=== PATIENT | male | born 1970 | race Caucasian/White ===

== ENCOUNTER 2024-07-18 09:53 | Inpatient (IN) | payer OTHER ==
[~2024-07-18] VITALS: Ht 175.3 cm; Wt 87.2 kg
--- NOTE | 2024-07-18 10:24 | ERN ---
General Chief Complaint: Shortness of Breath Stated Complaint: SOB Time Seen by MD: 09:59 Time Seen by Midlevel: 09:59 Source: patient History of Present Illness Initial Comments Patient is a 53-year-old male with a past medical history of type 2 diabetes and hypertension being brought in via EMS for evaluation of shortness of breath. According to patient he has been short of breath for the last two days. He saw his primary care doctor tip day where he was found to have heart rate in the 180s. He was found to have SVT. He was given one dose of adenosine by EMS which converted his rhythm to sinus tachycardia in the 110s. On arrival patient reports feeling significantly improved. He specifically denies any chest pain, shortness breath, or any other symptoms at this time. Patient states he feels like he is back to normal Allergies: Coded Allergies: No Known Drug Allergies (Unverified Allergy, Unknown, 07/18/24) ROS Dictation CONSTITUTIONAL: Negative except for HPI HEAD/FACE: Negative except for HPI EENT: Negative except for HPI RESPIRATORY: Negative except for HPI GASTROINTESTINAL/ABDOMINAL: Negative except for HPI GENITOURINARY: Negative except for HPI MUSCULOSKELETAL: Negative except for HPI INTEGUMENTARY: Negative except for HPI NEUROLOGICAL/PSYCH: Negative except for HPI HEMATOLOGIC/LYMPHATIC: Negative except for HPI All Systems Negative, Except as noted above. 13 point review of systems assessed and all negative except for above. Physical Exam Physical Exam Dictation Vital Signs reviewed General Appearance: Alert, oriented x 3, no acute distress, well developed, nourished. Head and Face: non-traumatic. Eyes: PERRL, pink conjunctivas, eyelid no trauma, anterior chamber with arcus senilis. Ears: Pinnas intact and no signs of trauma or erythema ear canals clear and no discharge TM no erythema Nose: No discharge, no bleeding. Oropharynx: Mouth normal, tongue pink, pharynx clear,no erythema, tonsils no exudates, no abscesses noted, mucous membrane moist Neck: Supple, non-tender, no thyromegaly, no masses, no JVD, no bruits Breast:Deferred Chest:No tenderness, no crepitus, no paradoxical movement, no retractions Lungs:Clear, well-ventilated, symmetric, no rales, no wheezing, no rhonchi, no stridor, good breath sounds bilaterally Heart: Regular rate, regular rhythm, no murmur, no gallops Vascular: no peripheral edema, Abdomen: Soft, positive bowel sounds, nondistended, no guarding, nontender, no rebound, no masses no hepatomegaly, no splenomegaly, no Nye's sign, no hernias. Rectal: Deferred Genital: Deferred Neurological: Normal speech, motor function intact, sensory function intact Musculoskeletal: Neck nontender, full range of motion, back nontender, full range of motion, Extremities: nontender, full range of motion Skin: Color pink, dry, no turgor, no rash, no lacerations, no abrasions, no contusions. Lymphatic: Deferred Results Laboratory and Microbiology Lab and Micro Result Laboratory Tests Test 07/18/24 10:21 07/18/24 11:15 07/18/24 12:16 07/18/24 13:37 White Blood Count 13.8 K/uL (4.8-10.8) H Red Blood Count 4.91 MIL/uL (4.50-6.20) Hemoglobin 14.3 g/dL (14.0-18.0) Hematocrit 43.8 % (42-54) Mean Corpuscular Volume 89.2 fL (79-99) Mean Corpuscular Hemoglobin 29.1 pg (27.0-33.0) Mean Corpuscular Hemoglobin Concent 32.6 g/dL (32.0-36.0) Red Cell Distribution Width 13.3 % (11.0-15.5) Platelet Count 133 K/uL (130-400) Mean Platelet Volume 14.1 fL (7.5-10.5) H Immature Granulocyte % (Auto) 0.7 % (0-1) Neutrophils (%) (Auto) 85.0 % (40.0-77.0) H Lymphocytes (%) (Auto) 7.7 % (21.0-51.0) L Monocytes (%) (Auto) 6.1 % (3.0-13.0) Eosinophils (%) (Auto) 0.1 % (0.0-8.0) Basophils (%) (Auto) 0.4 % (0.0-5.0) Neutrophils # (Auto) 11.8 K/uL (1.8-7.7) H Lymphocytes # (Auto) 1.1 K/uL (1.0-4.8) Monocytes # (Auto) 0.8 K/uL (0.1-1.0) Eosinophils # (Auto) 0.01 K/uL (0.00-0.70) Basophils # (Auto) 0.05 K/uL (0.00-0.20) Absolute Immature Granulocyte (auto 0.09 K/uL (0-1) Nucleated Red Blood Cells 0.0 % (0.0-0.19) White Cell Morphology Comment See comments Prothrombin Time 11.5 SEC (9.6-11.6) Prothromb Time International Ratio 1.03 (0.85-1.15) Activated Partial Thromboplast Time 24.1 SEC (26.3-35.5) L Sodium Level 137 mmol/L (136-145) Potassium Level 5.4 mmol/L (3.5-5.1) H Chloride Level 100 mmol/L (101-111) L Carbon Dioxide Level 27 mmol/L (21-32) Blood Urea Nitrogen 25 mg/dL (7-18) H Creatinine 2.0 mg/dL (0.5-1.3) H Glomerular Filtration Rate Calc 40 mL/min (>90) Random Glucose 392 mg/dL (70-105) H Total Calcium 9.1 mg/dL (8.5-10.1) Magnesium Level 1.90 mg/dL (1.80-2.40) Total Creatine Kinase 228 U/L (21-232) Troponin I High Sensitivity 347 ng/L (4-75) *H 379 ng/L (4-75) *H B-Type Natriuretic Peptide 746 pg/mL (0-100) H Whole Blood Glucose 301 MG/DL (70-110) H Urine Color YELLOW (YELLOW) Urine Appearance CLEAR (CLEAR) Urine pH 5.5 (5.0-8.0) Urine Specific [place] 1.038 (1.001-1.031) Urine Protein 50 mg/dL (NEGATIVE) H Urine Glucose (UA) >=1000 mg/dL (NEGATIVE) H Urine Ketones 10 mg/dL (NEGATIVE) H Urine Occult Blood NEGATIVE (NEGATIVE) Urine Nitrate NEGATIVE (NEGATIVE) Urine Bilirubin NEGATIVE mg/dL (NEGATIVE) Urine Urobilinogen 0.2 mg/dL (0.2-1.0) Urine Leukocyte Esterase NEGATIVE Corina/uL Urine RBC 0-1 /HPF (0-1) Urine WBC 2-5 /HPF (0-1) H Urine Squamous Epithelial Cells RARE /HPF (0-2) Urine Bacteria None /HPF (None Seen) Urine Other Casts 5 /LPF (None Seen) Urine Opiates Screen NEGATIVE (NEGATIVE) Urine Barbiturates Screen NEGATIVE (NEGATIVE) Urine Phencyclidine Screen NEGATIVE (NEGATIVE) Urine Amphetamines Screen NEGATIVE (NEGATIVE) Urine Benzodiazepines Screen NEGATIVE (NEGATIVE) Urine Cocaine Screen NEGATIVE (NEGATIVE) Urine Marijuana (THC) Screen NEGATIVE (NEGATIVE) Labs Reviewed?: Yes MDM MDM: Differential diagnosis: Cardiac arrhythmia, ACS, electrolyte abnormality, dehydration Rationale: Tests considered and ordered secondary to shared decision making include: Previous outside records reviewed: Old ER visits. Risk of complication and/or morbidity or mortality of patient management: None Medications-Per medication reconciliation Need for hospitalization: Patient does meet criteria for hospitalization. Need for emergency major/minor surgery: No There are no social concerns with this patient. Prescription drug management Prescriptions will include symptomatic care Patient's prior external medical records from other ER visits were reviewed by me as indicated. Prior testing and results from previous visits were reviewed. Prior tests were taken into account with medical decision making and resource utilization, independent historian/historians were used to obtain complete medical history. I independently interpreted the test that were performed, results were reviewed by me and considered findings on radiology if ordered. Medical management and examination interpretation discussions were had by me with other qualified healthcare professionals as indicated for the patient's care. ED Course Orders Procedure Category Date Status Time 12 Lead Ekg Tracing- EKG 07/18/24 Complete Technical 10:12 B-Type Natriuretic LAB 07/18/24 Complete Peptide 10:12 Cbc With Differential LAB 07/18/24 Complete 10:12 Creatine Kinase, Total LAB 07/18/24 Complete 10:12 Basic Metabolic Panel LAB 07/18/24 Complete 10:12 Drug Screen Urine LAB 07/18/24 Complete 10:12 Urinalysis Profile LAB 07/18/24 Complete 10:12 Troponin I High LAB 07/18/24 Complete Sensitivity 10:12 Pt And Ptt LAB 07/18/24 Complete 10:12 Magnesium LAB 07/18/24 Complete 10:12 Chest 1vw RAD 07/18/24 Resulted 10:12 0.9%Nacl 1000ml (Ns PHA 07/18/24 Complete 1000ml) 11:00 Calcium Gluc 1gm PHA 07/18/24 Complete (Calcium Gluc 1gm 11:00 Insulin Regular, PHA 07/18/24 Complete Human 3ml (Humulin R 11:00 Troponin I High LAB 07/18/24 Complete Sensitivity 11:12 Current Medications Medications (Trade) Dose Ordered Sig/Tiana Route PRN Reason Start Time Stop Time Status Last Admin Dose Admin Calcium Gluconate 1 gm/Sodium Chloride 110 ml @ 110 mls/hr ONCE ONCE IV 07/18/24 11:00 07/18/24 11:59 DC 07/18/24 11:32 Insulin Human Regular (humuLIN R 100 UNIT/ML 3ML) 5 unit ONCE ONCE IV 07/18/24 11:00 07/18/24 11:05 DC 07/18/24 11:32 Sodium Chloride 1,000 ml @ 0 mls/hr ONCE ONCE IV 07/18/24 11:00 07/18/24 11:05 DC 07/18/24 11:33 Vital Signs Date Time Temp Pulse Resp B/P (MAP) Pulse Ox O2 Delivery O2 Flow Rate FiO2 07/18/24 13:30 99 20 145/103 98 Room Air* 0 21 07/18/24 10:22 98.2 104 16 153/105 100 Room Air 0 07/18/24 10:10 98.2 104 17 153/105 100 Room Air* [address] [address] IMAGING REPORT Signed PATIENT: CHANDLER LAMAS MR#: [id number] : 1970 SEX: M AGE: 53 LOCATION: ED ORDER 1013 STATUS: REG ER REPORT#: [id number] SERVICE 1012 REASON: sob ORDERING PHYSICIAN: KRISTIN HAYNES PROCEDURE: CXR1VW - CHEST 1VW CHEST 1VW HISTORY: Shortness of breath COMPARISON: None FINDINGS: A frontal projection of the chest was obtained. No acute pulmonary infiltrates is seen. The heart is borderline enlarged. Degenerative changes are seen. Prominent interstitial markings are seen. No evidence of aortic calcification is seen. IMPRESSION: 1. No acute pulmonary infiltrate is seen. DICTATED BY: GORGE HAHN MD DATE: 07/18/24 1036 ELECTRONICALLY SIGNED BY: GORGE HAHN MD DATE: 07/18/24 1042 DX & DISP Disposition: Inpatient Decision to Admit Date: Jul 18, 2024 Departure Impression: Primary Impression: SVT (supraventricular tachycardia) Additional Impressions: Elevated troponin, FERNANDA (acute kidney injury), Hyperkalemia, Elevated brain natriuretic peptide (BNP) level Condition: Stable Referrals: SHAISTA KLINE MD (PCP) I have reviewed the case, and I agree with, Diagnosis and Plan I performed the substantive portion of the visit. I have reviewed and personally made and approve the management plan that is documented in the note by myself or the JOSUE. I acknowledge for responsibility for the patient's management plan. KRISTIN HAYNES Jul 18, 2024 10:24
[2024-07-18 10:28] LABS: BASOPHILS # (AUTO) 0.05 K/uL (0.00-0.20); BASOPHILS % (AUTO) 0.4 % (0.0-5.0); EOSINOPHILS # (AUTO) 0.01 K/uL (0.00-0.70); EOSINOPHILS % (AUTO) 0.1 % (0.0-8.0); HEMATOCRIT 43.8 % (42-54); IMMATURE GRANULOCYTE ABSOLUTE 0.09 K/uL (0-1); LYMPHOCYTES # (AUTO) 1.1 K/uL (1.0-4.8); LYMPHOCYTES % (AUTO) 7.7 % (21.0-51.0); MEAN CORPUSCULAR HEMOGLOBIN 29.1 pg (27.0-33.0); MEAN CORPUSCULAR HGB CONC 32.6 g/dL (32.0-36.0); MEAN CORPUSCULAR VOLUME 89.2 fL (79-99); MONOCYTES # (AUTO) 0.8 K/uL (0.1-1.0); MONOCYTES % (AUTO) 6.1 % (3.0-13.0); NEUTROPHILS # (AUTO) 11.8 K/uL (1.8-7.7); PLATELET COUNT (AUTO) 133 K/uL (130-400); RED BLOOD CELL COUNT(AUTO) 4.91 MIL/uL (4.50-6.20); RED CELL DISTRIBUTION WIDTH 13.3 % (11.0-15.5); WHITE BLOOD COUNT (AUTO) 13.8 K/uL (4.8-10.8)
[2024-07-18 10:35] LABS: POTASSIUM 5.4 mmol/L (3.5-5.1)
[2024-07-18 10:40] LABS: MAGNESIUM 1.9 mg/dL (1.80-2.40)
--- NOTE | 2024-07-18 10:42 | HMCIMG ---
CHEST 1VW HISTORY: Shortness of breath COMPARISON: None FINDINGS: A frontal projection of the chest was obtained. No acute pulmonary infiltrates is seen. The heart is borderline enlarged. Degenerative changes are seen. Prominent interstitial markings are seen. No evidence of aortic calcification is seen. IMPRESSION: 1. No acute pulmonary infiltrate is seen.
--- NOTE | 2024-07-18 10:51 | EKG ---
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
[2024-07-18 10:52] LABS: INR 1.03 (0.85-1.15); PROTHROMBIN TIME 11.5 SEC (9.6-11.6)
[2024-07-18 10:54] LABS: PARTIAL THROMBOPLASTIN TIME 24.1 SEC (26.3-35.5)
[2024-07-18 11:09] LABS: B-TYPE NATRIURETIC PEPTIDE 746 pg/mL (0-100)
[2024-07-18] MEDS: CALCIUM GLUC 1GM 1 GM in 0.9%NACL 100ML 100 ML IV ONE (11:32)
[2024-07-18] MEDS: INSULIN humuLIN R 100 UNIT/ML 3ML IV ONE (11:32)
[2024-07-18] MEDS: 0.9%NACL 1000ML 1,000 ML IV ONE (11:33)
[2024-07-18 14:06] LABS: AMPHET/METH SCREEN,URINE NEGATIVE (NEGATIVE); BARBITURATE SCREEN, URINE NEGATIVE (NEGATIVE); BENZODIAZEPINES SCREEN,URINE NEGATIVE (NEGATIVE); CANNABINOID SCREEN,URINE NEGATIVE (NEGATIVE); COCAINE SCREEN,URINE NEGATIVE (NEGATIVE); OPIATE SCREEN,URINE NEGATIVE (NEGATIVE); PHENCYCLIDINE SCREEN,URINE NEGATIVE (NEGATIVE)
[2024-07-18 14:23] LABS: APPEARANCE,URINE CLEAR (CLEAR); BILIRUBIN,URINE NEGATIVE (NEGATIVE); COLOR,URINE YELLOW (YELLOW); GLUCOSE, URINE (UA) >=1000 mg/dL (NEGATIVE); KETONES,URINE 10 mg/dL (NEGATIVE); LEUKOCYTE ESTERASE ,URINE NEGATIVE Leu/uL (NEGATIVE); NITRATE,URINE NEGATIVE (NEGATIVE); OCCULT BLOOD,URINE NEGATIVE (NEGATIVE); PH,URINE 5.5 (5.0-8.0); PROTEIN,URINE 50 mg/dL (NEGATIVE); UROBILINOGEN,URINE 0.2 mg/dL (0.2-1.0)
[2024-07-18 14:42] LABS: ADD UA MICROSCOPIC YES
[2024-07-18 14:44] LABS: MUCUS,URINE RARE LPF (None Seen); OTHER CASTS, URINE 5 /LPF (None Seen); RBC,URINE 0-1 /HPF (0-1); SQUAMOUS EPITHELIAL CELL,UR RARE /HPF (0-2)
[2024-07-18] MEDS ORDERED: acetaMINOPHEN 325 MG TAB PO PRN (15:00)
[2024-07-18] MEDS ORDERED: ondanSETRON 4MG INJ IVP PRN (15:00)
--- NOTE | 2024-07-18 15:26 | NUR ---
SPOKE TO DR. HUBER BUTLER IN REGARDS TO CARDILOGY CONSULT FOR PT.
--- NOTE | 2024-07-18 15:49 | NUR ---
Cardiology Practicioner with pt at bedside.
--- NOTE | 2024-07-18 16:03 | HP ---
DATE OF SERVICE: 07/18/2024 HISTORY AND PHYSICAL PRESENTING COMPLAINT: Palpitation and abnormal EKG. HISTORY OF PRESENT ILLNESS: This is a 53-year-old male with history of obesity and diabetes mellitus, currently not on any medications, who presented to the emergency room with above complaint. The patient had gone to see his primary care physician today, where he was found to have SVT and was subsequently transferred to the hospital. The patient was given 1 dose of adenosine by EMS and converted to sinus rhythm. The patient claims he has been having palpitations for about 3-4 days, which he did not pay close attention. The patient also has been having progressive shortness of breath for 4 weeks. No orthopnea, no PND. Denies any leg swelling. No cough, no hemoptysis or pleuritic pain. EKG in the emergency room was sinus tachycardia. The patient was found to have elevated heart rate of 92. Initial troponin was 347, later on increased to 379. The patient claims he has a history of diabetes, but stopped taking Ozempic a few months ago. No dysuria or urinary frequency. The patient also has nausea and vomiting. No abdominal pain. PAST MEDICAL HISTORY: 1. Diabetes mellitus. 2. Obesity. PAST SURGICAL HISTORY: Appendectomy. ALLERGIES: No known drug allergy. HOME MEDICATIONS: Include Ozempic. SOCIAL HISTORY: Lives with . No alcohol, tobacco, or illicit drug use. FAMILY HISTORY: Positive for diabetes mellitus. REVIEW OF SYSTEMS: Greater than 10 systems were reviewed, negatives are documented above. PHYSICAL EXAMINATION: GENERAL: Young male, awake. VITAL SIGNS: Temperature 98.2, pulse 104, respirations 16, BP 153/105. EYES: No icterus. Pupils equal and reactive. HENT: No oral thrush seen. Moist oral mucosa. NECK: Supple, no JVD or thyromegaly. LUNGS: Good air entry. No rales, no rhonchi. CARDIOVASCULAR SYSTEM: S1, S2 regular, tachycardic. No murmur heard. ABDOMEN: Obese, soft, nontender. Bowel sounds present. CENTRAL NERVOUS SYSTEM: Awake, alert, oriented x 3. No focal deficits. SKIN: No rashes, no itchiness. LYMPHATIC: No peripheral lymphadenopathy. BACK: No deformity, no pressure ulcer. HEMATOLOGIC: No bleeding or petechial lesions seen. MUSCULOSKELETAL: No joint swelling, erythema, or tenderness. VASCULAR: No ischemia or gangrene of extremities. LABORATORY DATA: Sodium 137, potassium 5.4, BUN 25, creatinine 2.0. Troponin 379. Glucose 392. WBC 13.8, hemoglobin 14.3, platelets 133. Urine toxicology negative. RADIOLOGY: Chest x-ray unremarkable. ASSESSMENT: A 53-year-old male presenting with palpitations and abnormal EKG. CURRENT PROBLEMS: Include: 1. SVT. 2. Nonketotic hyperglycemia. 3. Acute renal failure. 4. Hyperkalemia. 5. Hypertension. 6. Obesity. PLAN: 1. The patient admitted to PCCU. 2. Troponin will be trended. 3. Aspirin will be started. 4. The patient will be placed on Lovenox. 5. Cardiology evaluation. 6. Start the patient on Lopressor. 7. Monitor electrolytes. 8. Home medication will be reconciled. 9. Obtain lipid profile. 10. Obtain hemoglobin A1c level. TID: [id number] RECEIPT: [id number] [facility] CENTERParmjit
[2024-07-18] MEDS: INSULIN LISpro 100 UNIT/ML 3ML SQ SCH (16:34)
[2024-07-18] MEDS: metoPROLOL tartRATE 25 MG TAB PO SCH (20:59)
--- NOTE | 2024-07-18 21:10 | CONS ---
CARDIOLOGY CONSULT Patient is a 53-year-old male with a past medical history of type 2 diabetes and hypertension being brought in via EMS for evaluation of shortness of breath. According to patient he has been short of breath for the last two days. He saw his primary care doctor tip day where he was found to have heart rate in the 180s. He was found to have SVT. He was given one dose of adenosine by EMS which converted his rhythm to sinus tachycardia in the 110s. On arrival patient reports feeling significantly improved. He specifically denies any chest pain, shortness breath, or any other symptoms at this time. Patient states he feels like he is back to normal we have been consult in view of SVT, and elevated trop of 379 pmhx as mentioned above social history no tobacco use surgical history noncontributory Vitals/Labs PE HEENT: Normacephalic,atraumatic.puplis equal and reactive to light.No pallor/jaundice/jvd/carotid bruit. LUNGS:CTA bilaterally CVS:All peripheral pulses felt and bilaterally decreased in bth feetheent No jvd /carotid bruit/femoral bruit /abdominal bruit.s1 s2 heard and irregularly irregular hr .no murmur's or any other adventitiuos sounds. ABD:Soft and nontender .No hepatomegaly. PHYSICAL THERAPY PROFESSOR:No focal weakness. EXT: no edema Vital Signs Date Time Temp Pulse Resp B/P (MAP) Pulse Ox O2 Delivery O2 Flow Rate FiO2 07/18/24 16:45 101 19 146/100 98 Room Air* 0 21 07/18/24 10:22 98.2 Laboratory Tests 07/18/24 10:21 Allergies: Coded Allergies: No Known Drug Allergies (Unverified Allergy, Unknown, 07/18/24) Medications Current Medications Sodium Chloride 1,000 ml @ 0 mls/hr ONCE ONCE IV Last administered on 07/18/24at 11:33; Start 07/18/24 at 11:00; Stop 07/18/24 at 11:05; Status DC Calcium Gluconate 1 gm/Sodium Chloride 110 ml @ 110 mls/hr ONCE ONCE IV Last administered on 07/18/24at 11:32; Start 07/18/24 at 11:00; Stop 07/18/24 at 11:59; Status DC Insulin Human Regular 5 unit ONCE ONCE IV Last administered on 07/18/24at 11:32; Start 12/17/24 at 11:00; Stop 07/18/24 at 11:05; Status DC Acetaminophen 650 mg Q6H PRN PO; Start 07/18/24 at 15:00; Stop 08/17/24 at 14:59 Ondansetron HCl 4 mg Q6H PRN IVP; Start 07/18/24 at 15:00; Stop 08/17/24 at 14:59 Enoxaparin Sodium 40 mg DAILY SQ; Start 07/19/24 at 09:00; Stop 08/18/24 at 08:59 Metoprolol Tartrate 25 mg BID PO; Start 07/18/24 at 21:00; Stop 08/17/24 at 20:59 Insulin Human Lispro INSULIN SLIDING SCAL... ACHS SQ Last administered on 07/18/24at 16:34; Start 07/18/24 at 16:30; Stop 08/17/24 at 16:29 ASSESSMENT: 1. SVT resolved with adenosine 2. type 2 mi 3. htn, hld, dm ii PLAN: From a cardiovascular standpoint we will do one more troponin if there isnt a significant increase of troponin I pt can go home and we will plan for out pt cadx workup further recommendation will be based on how pt does IVANNA TIM PAC Jul 18, 2024 21:10
[2024-07-18] MEDS: ALPRAZolam 0.5 MG TABLET PO ONE (21:14)
--- NOTE | 2024-07-18 21:42 | NUR ---
dr degroot notified regarding critical troponin; per dr degroot continue with asa and lovenox; no new orders given
[2024-07-19 05:02] LABS: BASOPHILS # (AUTO) 0.07 K/uL (0.00-0.20); BASOPHILS % (AUTO) 0.5 % (0.0-5.0); EOSINOPHILS # (AUTO) 0.06 K/uL (0.00-0.70); EOSINOPHILS % (AUTO) 0.4 % (0.0-8.0); HEMATOCRIT 45.7 % (42-54); IMMATURE GRANULOCYTE ABSOLUTE 0.06 K/uL (0-1); LYMPHOCYTES # (AUTO) 1.6 K/uL (1.0-4.8); LYMPHOCYTES % (AUTO) 11.7 % (21.0-51.0); MEAN CORPUSCULAR HEMOGLOBIN 29.5 pg (27.0-33.0); MEAN CORPUSCULAR HGB CONC 32.8 g/dL (32.0-36.0); MEAN CORPUSCULAR VOLUME 89.8 fL (79-99); MONOCYTES # (AUTO) 0.8 K/uL (0.1-1.0); MONOCYTES % (AUTO) 5.9 % (3.0-13.0); NEUTROPHILS # (AUTO) 11.1 K/uL (1.8-7.7); NEUTROPHILS % (AUTO) 81.1 % (40.0-77.0); PLATELET COUNT (AUTO) 131 K/uL (130-400); RED BLOOD CELL COUNT(AUTO) 5.09 MIL/uL (4.50-6.20); RED CELL DISTRIBUTION WIDTH 13.3 % (11.0-15.5); WHITE BLOOD COUNT (AUTO) 13.7 K/uL (4.8-10.8)
[2024-07-19 05:25] LABS: CREATININE 1.6 mg/dL (0.5-1.3); POTASSIUM 4.7 mmol/L (3.5-5.1)
[2024-07-19 05:28] LABS: HEMOGLOBIN A1C 10.4 % (4.0-6.0)
[2024-07-19 05:40] LABS: MAGNESIUM 1.9 mg/dL (1.80-2.40)
--- NOTE | 2024-07-19 06:48 | NUR ---
INFORMED DR PURVIS OF TROPONIN [address] CK 877. PER HE WILL STOP BY TO SEE THE PATIENT. Addendum: 07/19/24 at 0651 by LATRICIA ONEILL RN RN PLEASE DISREGARD ERROR
[2024-07-19] MEDS: ENOXAPARIN SODIUM 40 MG/0.4 ML SYRINGE SQ SCH (08:48)
--- NOTE | 2024-07-19 09:00 | NUR ---
PATIENT TAKEN FOR STRESS TEST
[2024-07-19] MEDS: REGADENOSON 0.4 MG/5 ML PF SYG IVP SCH (10:20)
--- NOTE | 2024-07-19 10:24 | NUR ---
PATIENT RETURNED FROM STRESS TEST.
--- NOTE | 2024-07-19 11:16 | NUR ---
PATIENT DOES NOT TAKE [facility] HOME MEDICATIONS. PATIENT WOULD LIKE A FLU SHOT.
--- NOTE | 2024-07-19 15:00 | NUR ---
DCP: HOME Sw spoke to pt's Ro Alvarez [phone]. 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 PCP is Orlando Stevens nd uses [facility] for rx. Per , pt will dc home
--- NOTE | 2024-07-19 15:06 | HMCSR ---
APPROVED REPORT EXAM: Two-dimensional and M-mode echocardiogram with Doppler and color Doppler. INDICATION ICD: Superventricular tachycardia 2D Dimensions RVDd4.4 cmLVEF(%)26.5 (>50%)LVED Vol(simp.)147.0 mL IVSd0.7 (0.7-1.1cm)FS(%)13 %LVES Vol(simp.)97.3 mL LVDd5.5 (3.8-5.6cm)LA (2D)4.5 (1.6-4.0cm)LVEF(%, simp.)34 % PWd1.1 (0.7-1.1cm)Ao Root(2D)3.6 (2.0-3.7cm)LA ESV INDEX (4CH)31.30 mL/m2 IVSs0.8 cmLVOT diam2.0 (1.8-2.4cm)LA ESV INDEX (2CH)46.10 mL/m2 LVDs4.8 (2.5-4.0cm)LA ESV INDEX (BP)37.90 mL/m2 PWs1.3 cm M-Mode Dimensions EPSS1.7 cm LA (MM)5.2 (1.6-4.0cm) Ao Root(MM)3.3 (2.0-3.7cm) Aortic Valve AoV VTI0.2 mAo Mean GR4.0 mmHgLVOT VTI0.12 m AMIRA (VMAX)1.7 cm2Al P1/2T422 msAVA (VTI) 1.7 cm2 Mitral Valve MV E Phhz492.2 cm/sDECEL Time99 ms MV A Vmax55.8 cm/sP 1/2 T44 ms E/A ratio1.9MVA (PHT)5.0 cm2 MR Max PG121 mmHg TDI E/E' Nzrwhv13.7E/E' Mssnufn64.0 Medial E' Peak V6.10 cm/sLateral E' Peak V5.70 cm/s Pulmonary Valve PI End Keri. Kin 115.4 cm/s Tricuspid Valve TR Vmax3.1 m/sRAP (EST) 15 kzHsQTRL90.0 mmHg TR Peak GR38.0 mmHg Left Ventricle The left ventricle is normal size. There is global hypokinesis of the left ventricle. There is normal left ventricular wall thickness. LVEF is 30-35%. The left ventricular diastolic function is normal. Right Ventricle The right ventricle is mildly to moderately dilated. The right ventricular systolic function is terell l. Atria The left atrium is mildly dilated. The right atrium is moderately dilated. Aortic Valve Aortic valve is trileaflet and opens well. No aortic regurgitation is present. There is no aortic veronika vular stenosis. Mitral Valve The mitral valve is normal in structure. There is trace of mitral valve regurgitation noted. There is no mitral valve stenosis. Tricuspid Valve The tricuspid valve is normal in structure. There is mild tricuspid valve regurgitation noted. Pulmonic Valve The pulmonary valve is normal in structure. There is mild pulmonic valvular regurgitation. Great Vessels The aortic root is normal in size. IVC is dilated and collapses <50% with inspiration. Pericardium There is no pericardial effusion. Other Information Quality : Adequate Conclusion LVEF is 30-35%. There is trace of mitral valve regurgitation noted.
--- NOTE | 2024-07-19 16:57 | HMCSR ---
APPROVED REPORT Height: 5 ft 9in Weight: 225 lbs TEST INDICATIONS SVT The imaging protocol used to acquire images was Rest Tc-99m/stress Tc-99m 1 day Consent: The procedure was explained and understood by the patient. Informerd consent was witnessed Alexandro Hartman RN First, low dose rest was performed then high dose stress. RESTING DATA: The resting ekg shows: NSR Rest SPECT myocardial perfusion imaging was performed in supine position minutes following the intra venous injection of 13.5 mCi of Tc-99 Sestamibi. Time of rest injection: 09:00: Date: 07/19/2024 PHARMACOLOGIC STRESS: Pharmacologic stress test was performed by injecting regadenoson 0.4 mg IV push followed by the intra venous injection of 30 mCi of Tc-99 Sestamibi. Time of stress injection: 10:10: Date: 07/19/2024 Heart Rate at time of stress injection: 78 bpm. The images were gated to evaluate regional wall motion and calculate left ventricular ejection fracti on. STRESS DETAILS Reason for Termination: Infusion complete Stress Symptoms: Dyspnea Max HR Achieved: 83 bpm % of APMHR Achieved: 58 Max Blood Pressure: 131/94 mmHg Stress ECG: NSR Conclusion No ischemia No infarct LV ejection fraction 33% Diffuse mild LV hypokinesis Dilate LV at rest and stress No increased lung uptake
[2024-07-19] MEDS: LoSARTan 25 MG TABLET PO ONE (18:57)
[2024-07-19] MEDS: furoSEMIDE 20MG VIAL IV SCH (19:31)
[2024-07-19] MEDS: ALPRAZolam 0.5 MG TABLET PO PRN (20:56)
--- NOTE | 2024-07-19 23:15 | PN ---
SUBJECTIVE: The patient has some shortness of breath, episodic. OBJECTIVE: VITAL SIGNS: Heart rate is 70, blood pressure is 150/110. HEENT: No JVD. LUNGS: Mostly clear. CARDIOVASCULAR: No S3, no S4. ABDOMEN: Benign. CENTRAL NERVOUS SYSTEM: Nonfocal exam. EXTREMITIES: No pitting edema. LABORATORY FINDINGS: Labs have all been reviewed. Echocardiogram shows severe LV dysfunction. Stress test showed ejection fraction of 30-35%. There is no discrete ischemia seen. 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 * Supraventricular tachycardia. * Shortness of breath, likely secondary to mild congestive heart failure. RECOMMENDATIONS: * I will start him on diuretics. * I have given the option of doing a cardiac catheterization on him. Procedure, benefits, risks have all been explained to him. He understands and wishes to proceed. We will proceed with a cardiac catheterization tomorrow. In the meantime, I will start him on NAEL inhibitors and low dose diuretics. TID: [id number] RECEIPT: [id number]
[2024-07-20] VITALS (17 sets, daily range): BP systolic 126–157; BP diastolic 86–107; PULSE 82–98; RESP 16–20; TEMP 97.5–98.3; O2SAT 97
--- NOTE | 2024-07-20 01:40 | NUR ---
CALL TO DR HUBER BUTLER. PENDING CALL BACK
--- NOTE | 2024-07-20 01:43 | NUR ---
PATIENT ARRIVED TO ROOM 204. PATIENT AAOX4, ASYMPTOMATIC. TELE MONITOR CALLED STATING SOON TELE MONITOR WAS PUT ON, RHYTHM SHOWS SVT HR 190. TELEPHONE CALL WITH DR HUDSON. NEW ORDERS: ADENOSINE 6MG IV PUSH STAT. IF THAT DOESN'T WORK, ADMINISTER ADENOSINE 12 MG IV PUSH. MONITOR BLOOD PRESSURE. IF NO CHANGE, LOPRESSOR 5MG IV PUSH ONCE.
--- NOTE | 2024-07-20 01:59 | NUR ---
0154 PATIENT BLOOD PRESSURE 137/88 HR SVT 190 RN ADMINISTERED ADENOSINE 6 MG IV PUSH 0158 NO CHANGE IN PATIENT HR OR RHYTHM. RHYTHM SVT HR 190.PATIENT ASYMPTOMATIC. RN ADMINISTERED ADENOSINE 12 MG IV PUSH. 0159 HR 75 RHYTHM SR
[2024-07-20] MEDS ORDERED: ADENOSINE 6MG VIAL IV ONE (02:00)
[2024-07-20] MEDS: ADENOSINE 6MG VIAL IV STA ×3 (02:04→21:39)
[2024-07-20] MEDS: ADENOSINE 6MG VIAL IV ONE (02:05)
[2024-07-20] MEDS: metoPROLOL tartRATE 1 MG/ML 5ML VIAL IV ONE (07:00)
[2024-07-20] MEDS: LoSARTan 25 MG TABLET PO SCH (08:57)
--- NOTE | 2024-07-20 09:11 | PN ---
DATE OF SERVICE: 07/19/2024 INFECTIOUS DISEASE FOLLOWUP NOTE SUBJECTIVE: The patient is seen and examined at bedside today. No fever, no chills. No nausea, vomiting. No abdominal pain. Chest pain now has resolved. The patient has history of shortness of breath on mild exertion. No dysuria or hematuria. No depression. No suicidal ideation. No heat or cold intolerance. No palpitations or orthopnea. No slurred speech or limb weakness. Appetite is good. Stress test has been done, awaiting official report. The patient has been evaluated by Cardiology. PHYSICAL EXAMINATION:. VITAL SIGNS: Temperature 98.7. EYES: No icterus. Pupils are equal and reactive. HEENT: No oral thrush seen. Moist oral mucosa. NECK: Supple. No JVD or thyromegaly. LUNGS: Good air entry. No rales. No rhonchi. CARDIOVASCULAR: S1, S2 regular. No murmur heard. ABDOMEN: Obese. Soft. Nontender. Bowel sounds are present. CENTRAL NERVOUS SYSTEM: Awake, alert, oriented x 3. No focal deficits. SKIN: No rashes. No itchiness. LYMPHATIC: No peripheral lymphadenopathy. BACK: No deformity. No pressure ulcer. HEMATOLOGIC: No bleeding or petechial lesions seen. MUSCULOSKELETAL: No joint swelling, erythema or tenderness. ASSESSMENT: A 53-year-old male admitted with shortness of breath and palpitations. CURRENT PROBLEMS: Include: * Supraventricular tachycardia. * Obesity. * Hypertension. * Diabetes mellitus with A1c of 10.1. PLAN: * Continue antidiabetic. * Continue metoprolol. * Continue nutritional support. * Continue ____. * Continue antiplatelet. * Monitor electrolytes and correct as needed. * Follow up echocardiogram and stress test result. TID: [id number] RECEIPT: [id number]
--- NOTE | 2024-07-20 10:35 | EKG ---
[facility] Test Date: 2024-07-20 Test Time: 01:47:21 Pat Name: CHANDLER LAMAS Department: [facility] Room: 204 1 Gender: M Cake Wringer: demarco : 1970 Requested By: FELTON HUDSON Order Number: [id number] Reading MD: Emanuel Kuo Measurements Intervals [place] Rate: 192 P: -57 NC: 65 QRS: 19 QRSD: 93 T: 131 QT: 270 QTc: 483 Interpretive Statements Supraventricular tachycardia Repolarization abnormality, prob rate related Compared to ECG 07/18/2024 09:43:12 Early repolarization now present Sinus tachycardia no longer present T-wave abnormality no longer present Electronically Signed On 07-20-2024 20:17:06 CHILD AND ADOLESCENT PSYCHIATRIST by Emanuel Kuo Please click the below link to view image of tracing.
--- NOTE | 2024-07-20 13:34 | PN ---
INFECTIOUS DISEASE PROGRESS NOTE Date of Service: Jul 20, 2024 SUBJECTIVE: This is a 53-year-old male patient who was sent over from his PCP for evaluation of palpitations and an abnormal EKG showing SVT. Patient had a stress test done yesterday which showed no ischemia. Patient was seen and examined at bedside in room 204. Patient is awake, alert x3. Patient is scheduled for a left heart catheterization today. No shortness a breath observed and patient is saturating 97 to 100%. Denying chest pain at the moment. No nausea or vomiting. No reports of fever, temperature is 98.2. We will continue to follow patient's care. PHYSICAL EXAM EYES: Anicteric. Pupils equal and reactive. HENT: No oral thrush seen, moist Oral mucosa NECK: Supple, no JVD or thyromegaly. LUNGS: Good air entry. No rales, no rhonchi. CARDIOVASCULAR: S1, S2 regular. No murmur heard. ABDOMEN: Soft, non tender, bowel sounds present, no organomegaly CENTRAL NERVOUS SYSTEM: Awake, alert, oriented x 3. No focal deficits. SKIN: No rashes, no swelling. LYMPHATICS: No peripheral lymphadenopathy MUSCULOSKELETAL: No joint swelling, erythema or tenderness. EXTREMITIES: No cyanosis or clubbing BACK: No deformity, no pressure ulcer. GENITOURINARY: No dysuria or hematuria Vital Sign (Last 12 Hours) 07/20/24 07/20/24 07/20/24 07/20/24 02:00 02:04 02:05 02:05 Pulse 190 190 92 B/P (MAP) 133/98 134/88 134/88 Pulse Ox 97 O2 Delivery Nasal Cannula* O2 Flow Rate 2 FiO2 28 07/20/24 07/20/24 08:18 11:34 Temp 98.2 97.9 Pulse 82 87 Resp 18 18 B/P (MAP) 155/107 136/89 Pulse Ox 96 98 O2 Delivery Room Air Room Air LABS: Laboratory: Test 07/20/24 11:23 07/19/24 08:24 07/19/24 04:25 07/18/24 20:40 Range/Units Whole Blood Glucose 261 H 70-110 MG/DL Bedside Glucose Comment Notified Nurse White Blood Count 13.7 H 4.8-10.8 K/uL Red Blood Count 5.09 4.50-6.20 MIL/uL Hemoglobin 15.0 14.0-18.0 g/dL Hematocrit 45.7 42-54 % Mean Corpuscular Volume 89.8 79-99 fL Mean Corpuscular Hemoglobin 29.5 27.0-33.0 pg Mean Corpuscular Hemoglobin Concent 32.8 32.0-36.0 g/dL Red Cell Distribution Width 13.3 11.0-15.5 % Platelet Count 131 130-400 K/uL Mean Platelet Volume 14.5 H 7.5-10.5 fL Immature Granulocyte % (Auto) 0.4 0-1 % Neutrophils (%) (Auto) 81.1 H 40.0-77.0 % Lymphocytes (%) (Auto) 11.7 L 21.0-51.0 % Monocytes (%) (Auto) 5.9 3.0-13.0 % Eosinophils (%) (Auto) 0.4 0.0-8.0 % Basophils (%) (Auto) 0.5 0.0-5.0 % Neutrophils # (Auto) 11.1 H 1.8-7.7 K/uL Lymphocytes # (Auto) 1.6 1.0-4.8 K/uL Monocytes # (Auto) 0.8 0.1-1.0 K/uL Eosinophils # (Auto) 0.06 0.00-0.70 K/uL Basophils # (Auto) 0.07 0.00-0.20 K/uL Absolute Immature Granulocyte (auto 0.06 0-1 K/uL Nucleated Red Blood Cells 0.0 0.0-0.19 % Sodium Level 141 136-145 mmol/L Potassium Level 4.7 3.5-5.1 mmol/L Chloride Level 103 101-111 mmol/L Carbon Dioxide Level 28 21-32 mmol/L Blood Urea Nitrogen 26 H 7-18 mg/dL Creatinine 1.6 H 0.5-1.3 mg/dL Glomerular Filtration Rate Calc 52 >90 mL/min Random Glucose 162 #H 70-105 mg/dL Hemoglobin A1c 10.4 H 4.0-6.0 % Estimated Average Glucose (eAG) 252 H 70-126 mg/dL Whole Blood Ketones Quantitative 1.0 H 0.0-0.6 mmol/L Total Calcium 8.8 8.5-10.1 mg/dL Magnesium Level 1.90 1.80-2.40 mg/dL Triglycerides Level 118 30-200 mg/dL Cholesterol Level 147 <200 mg/dL LDL Cholesterol 87 0-99 mg/dL HDL Cholesterol 41 29-71 mg/dL Troponin I High Sensitivity 770 *H 4-75 ng/L Test 07/18/24 13:37 Range/Units Urine Color YELLOW YELLOW Urine Appearance CLEAR CLEAR Urine pH 5.5 5.0-8.0 Urine Specific [place] 1.038 H 1.001-1.031 Urine Protein 50 H NEGATIVE mg/dL Urine Glucose (UA) >=1000 H NEGATIVE mg/dL Urine Ketones 10 H NEGATIVE mg/dL Urine Occult Blood NEGATIVE NEGATIVE Urine Nitrate NEGATIVE NEGATIVE Urine Bilirubin NEGATIVE NEGATIVE mg/dL Urine Urobilinogen 0.2 0.2-1.0 mg/dL Urine Leukocyte Esterase NEGATIVE NEGATIVE Corina/uL Urine RBC 0-1 0-1 /HPF Urine WBC 2-5 H 0-1 /HPF Urine Squamous Epithelial Cells RARE 0-2 /HPF Urine Bacteria None None Seen /HPF Urine Other Casts 5 None Seen /LPF Urine Opiates Screen NEGATIVE NEGATIVE Urine Barbiturates Screen NEGATIVE NEGATIVE Urine Phencyclidine Screen NEGATIVE NEGATIVE Urine Amphetamines Screen NEGATIVE NEGATIVE Urine Benzodiazepines Screen NEGATIVE NEGATIVE Urine Cocaine Screen NEGATIVE NEGATIVE Urine Marijuana (THC) Screen NEGATIVE NEGATIVE ASSESSMENT: Supraventricular tachycardia. Elevated troponin POA. Leukocytosis. Acute renal failure. Uncontrolled Diabetes mellitus. Obesity. PLAN: Cardiology has evaluated patient and scheduled for a left heart catheterization. Continue antiarrhythmic. Continue pain management. Glucometer checks a.c./hs and cover with insulin per sliding scale protocol. Avoid nephrotoxic medications. We will monitor electrolytes. This case was reviewed and discussed with my supervising physician and the above assessment and plan was formulated and agreed upon. ATTESTATION BY PHYSICIAN I have seen and examined the patient. I reviewed the documentation, medical decision making, and treatment plan as noted by the mid-level provider above. I agree with the findings and plan of care. FELTON HUDSON MD, M[facility]TA [facility] Jul 20, 2024 13:34
[2024-07-20] MEDS ORDERED: IOHEXOL 350 MG/ML 100ML INFUS..BTL IV ONE (15:27)
[2024-07-20] MEDS ORDERED: BIVALIRUDIN 250 MG/VIAL IV ONE (15:27)
[2024-07-20] MEDS ORDERED: HEParin 10,000 UNIT/10ML (1,000 UNIT/ML) VIAL ONE (15:27)
[2024-07-20] MEDS ORDERED: HEParin-NS 1,000 UNIT/500 ML 1,000 ML IV ONE (15:27)
[2024-07-20] MEDS ORDERED: NITROGLYCERIN 50MG VIAL ONE (15:28)
[2024-07-20] MEDS ORDERED: LIDOCAINE HCL 400MG/20ML VIAL ONE (15:28)
[2024-07-20] MEDS ORDERED: MIDAZOLAM HCL 1 MG/ML 2ML VIAL ONE (15:58)
[2024-07-20] MEDS ORDERED: FENTanyl CITRate PF 50 MCG/1 ML 2ML VIAL ONE (15:58)
[2024-07-20] MEDS ORDERED: hydrALAZine 20MG/ML VIAL ONE (16:10)
[2024-07-20] MEDS ORDERED: NITROGLYCERIN 4.9GM SPRAY 60 SPRAY/BOT SPRY TL ONE (16:11)
[2024-07-20] MEDS ORDERED: furoSEMIDE 40MG VIAL ONE (16:17)
--- NOTE | 2024-07-20 17:49 | CONS ---
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 tachycardia terminated with adenosine. During w/u, he has new onset dilated cardiomyopathy for which he's undergoing selective coronary angiogram. He has also been foudn to have HbA1c 10.3. During admission, he had recurrence of SVT which terminated with adenosine. he did not feel arrhythmia this time. Hence, of concern for tachycardia induced cardiomyopathy. 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 lives with and children Habits: [Never] smoker. [Denies] alcohol consumption. [Denies] illicit drug use Home Meds: reviewed Current Meds: reviewed Review of Systems: 13 pt ROS neg unless mentioned above Physical Examination: GENERAL: [No acute distress.] HEAD: [Normal with no signs of head trauma.] EYES: [EOMI.] ENT: [Hearing grossly intact, normal oropharynx.] NECK: [Supple without JVD. HEART: [Normal rate and rhythm. .] NEURO: [Awake, alert, and oriented x3.] Vital Signs (last 8hr) Date Time Temp Pulse Resp B/P (MAP) Pulse Ox O2 Delivery O2 Flow Rate FiO2 07/20/24 15:45 82 07/20/24 11:34 97.9 87 18 136/89 98 Room Air Laboratory: [ ] Hematology Labs: Test 07/19/24 04:25 Range/Units White Blood Count 13.7 H 4.8-10.8 K/uL Red Blood Count 5.09 4.50-6.20 MIL/uL Hemoglobin 15.0 14.0-18.0 g/dL Hematocrit 45.7 42-54 % Mean Corpuscular Volume 89.8 79-99 fL Mean Corpuscular Hemoglobin 29.5 27.0-33.0 pg Mean Corpuscular Hemoglobin Concent 32.8 32.0-36.0 g/dL Red Cell Distribution Width 13.3 11.0-15.5 % Platelet Count 131 130-400 K/uL Mean Platelet Volume 14.5 H 7.5-10.5 fL Immature Granulocyte % (Auto) 0.4 0-1 % Neutrophils (%) (Auto) 81.1 H 40.0-77.0 % Lymphocytes (%) (Auto) 11.7 L 21.0-51.0 % Monocytes (%) (Auto) 5.9 3.0-13.0 % Eosinophils (%) (Auto) 0.4 0.0-8.0 % Basophils (%) (Auto) 0.5 0.0-5.0 % Neutrophils # (Auto) 11.1 H 1.8-7.7 K/uL Lymphocytes # (Auto) 1.6 1.0-4.8 K/uL Monocytes # (Auto) 0.8 0.1-1.0 K/uL Eosinophils # (Auto) 0.06 0.00-0.70 K/uL Basophils # (Auto) 0.07 0.00-0.20 K/uL Absolute Immature Granulocyte (auto 0.06 0-1 K/uL Nucleated Red Blood Cells 0.0 0.0-0.19 % Chemistry Labs: Test 07/20/24 16:57 07/19/24 08:24 07/19/24 04:25 07/18/24 20:40 Range/Units Whole Blood Glucose 197 H 70-110 MG/DL Bedside Glucose Comment Notified Nurse Sodium Level 141 136-145 mmol/L Potassium Level 4.7 3.5-5.1 mmol/L Chloride Level 103 101-111 mmol/L Carbon Dioxide Level 28 21-32 mmol/L Blood Urea Nitrogen 26 H 7-18 mg/dL Creatinine 1.6 H 0.5-1.3 mg/dL Glomerular Filtration Rate Calc 52 >90 mL/min Random Glucose 162 #H 70-105 mg/dL Hemoglobin A1c 10.4 H 4.0-6.0 % Estimated Average Glucose (eAG) 252 H 70-126 mg/dL Whole Blood Ketones Quantitative 1.0 H 0.0-0.6 mmol/L Total Calcium 8.8 8.5-10.1 mg/dL Magnesium Level 1.90 1.80-2.40 mg/dL Triglycerides Level 118 30-200 mg/dL Cholesterol Level 147 <200 mg/dL LDL Cholesterol 87 0-99 mg/dL HDL Cholesterol 41 29-71 mg/dL Troponin I High Sensitivity 770 *H 4-75 ng/L Diagnostics / Radiology: reviewed Assessment: 1. 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 Acute HFrEF 3. DM2 4. HTN Plan: -discussed r/a/b EPS and catheter ablation of SVT. He and verbalized understanding and wished to proceed. will plan for it to be done as outpatient. -suggest lifevest (would not program VT zone and instead only program VF zone at 250 bpm to minimize risk of inappropriate shock due to SVT while awaiting ablation) MANISH WHATLEY MD Jul 20, 2024 17:49
[2024-07-20] MEDS: metoPROLOL tartRATE 50 MG TAB PO SCH (20:32)
--- NOTE | 2024-07-20 21:14 | NUR ---
QA ARCHITECT STATES THAT THE PATIENT IS SVT 195-200. DR HUDSON PAGED. DR HUDSON: CALL DR BUTLER. PATIENT STATES HE FELT HIS HEART RACING BUT FEELS BETTER NOW. HR 196.
--- NOTE | 2024-07-20 21:16 | NUR ---
SPOKE TO DR HUBER BUTLER. NEW ORDERS: ADENOSINE 6 MG IV PUSH, THEN ADENOSINE 12 MG IV PUSH, CALL DR MANISH GUADALUPE [employer].
--- NOTE | 2024-07-20 21:19 | NUR ---
PAGEParmjit ESTEVEZ'S OFFICE. [facility] STATES HE WILL PAGE DR MANISH GUADALUPE. PENDING CALL BACK
--- NOTE | 2024-07-20 21:22 | CCATH ---
CATH REPORT PREOPERATIVE DIAGNOSIS: Cardiomyopathy. PROCEDURES PERFORMED: * Left heart cardiac catheterization. * Left coronary artery angiogram. * Right coronary artery. * LV angiography. LINE SUPERVISOR: Nas Lomeli MD DETAILS OF PROCEDURE: After informed consent was obtained, the patient was brought to the cardiac catheterization lab. Bilateral groins prepped and draped in sterile fashion. ECG monitoring was established and maintained throughout the procedure. After obtaining adequate local anesthesia in the right groin, a 6-Sinhala sheath was inserted in the right common femoral artery via modified Seldinger technique without any problems. Following this, a JL4, then a JR4 and a 6-Sinhala pigtail catheters were all used to obtain cines of the left coronary artery, right coronary artery and to perform LV angiography in the standard EDWARD view. All catheter exchanges were done via long guidewire. The patient remained stable throughout the procedure and had no complications. FINDINGS: * LV angiography reveals severe LV dysfunction, ejection fraction is 25%. EDP is 35. * Left main is okay. * LAD gives rise to moderate-sized diagonal branches. * Circumflex artery is strongly dominant, gives rise to large obtuse marginal branches. * RCA is nondominant. Following the above, a sheathogram was done. Angio-Seal closure device was done without any problems. FINAL IMPRESSION: Severe nonischemic cardiomyopathy with high EDP. RECOMMENDATIONS: * Beta blockers. * NAEL inhibitors. * LifeVest. * Ablation of the SVT as the patient has rapid rates. 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 We will watch him closely. TID: [id number] RECEIPT: [id number]
--- NOTE | 2024-07-20 21:30 | NUR ---
2129 HR 198. PATIENT ASYMPTOMATIC, ADENOSINE 6 MG IV PUSH ADMINISTERED BY RN. 2131 HR 80.
--- NOTE | 2024-07-20 21:45 | NUR ---
SPOKE TO ANSWERING SERVICE [facility] TO PAGE DR MANISH GUADALUPE, ANSWERING SERVICE STATES THEY DON'T HAVE A DOCTOR WITH THAT NAME.
--- NOTE | 2024-07-20 21:53 | NUR ---
CALLED DR HUBER BUTLER'S ANSWERING SERVICE AND ASKED THE GIRL TO PAGE DR MANISH GUADALUPE AGAIN PLEASE. ANSWERING STATES SHE DOESN'T HAVE A DOCTOR WITH THAT NAME. SERVICE DELIVERY CONSULTANT MADE AWARE THAT UNABLE TO GET AHOLD OF DR GUADALUPE AT THIS TIME
--- NOTE | 2024-07-20 21:56 | EKG ---
[facility] Test Date: 2024-07-20 Test Time: 21:26:10 Pat Name: CHANDLER LAMAS Department: [facility] Room: 204 1 Gender: M Brush Washer: MARJORIE : 1970 Requested By: HUBER BUTLER Order Number: [id number] Reading MD: Ryan Shepherd Measurements Intervals [place] Rate: 195 P: 0 TN: 0 QRS: 5 QRSD: 100 T: 234 QT: 246 QTc: 443 Interpretive Statements Supraventricular tachycardia Nonspecific ST and T wave abnormality, possible ischemia Compared to ECG 07/20/2024 01:47:21 ST (T wave) deviation now present Early repolarization no longer present Electronically Signed On 07-21-2024 19:35:54 PROCESS TANK TENDER by Ryan Shepherd Please click the below link to view image of tracing.
[2024-07-21] VITALS (16 sets, daily range): BP systolic 113–151; BP diastolic 78–103; PULSE 66–88; RESP 16–20; TEMP 97.5–98.4; O2SAT 97–98
--- NOTE | 2024-07-21 07:56 | PN ---
[facility] CARDIAC ELECTROPHYSIOLOGY PROGRESS NOTE Date Patient Seen: Jul 21, 2024 Time of Visit: 07:44 Interval History: SVT overnight. rx with adenosine. Asymptomatic. Physical Examination: GENERAL: [No acute distress.] HEAD: [Normal with no signs of head trauma.] EYES: [EOMI.] ENT: [Hearing grossly intact, normal oropharynx.] NECK: [Supple without JVD. HEART: [Normal rate and rhythm. .] NEURO: [Awake, alert, and oriented x3.] Laboratory: [ ] Chemistry Labs: Test 07/21/24 05:40 07/19/24 08:24 Range/Units Whole Blood Glucose 139 #H 70-110 MG/DL Bedside Glucose Comment Notified Nurse Diagnostics / Radiology: reviewed Impression and Plan: 1. 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 New diagnosis of HFrEF- likely tachycardia induced cardiomyopathy 3. Poorly controlled Diabetes 4. HTN 5. FH of premature coronary disease. no obstructive CAD on selective coronary an giogram with by Dr Lomeli yesterday. -given recurrent episodes, will try to proceed with inpatient EPS/catheter ablation this admission if hospital permits and lab director schedule permits. NPO this morning for possible procedure in afternoon. Discussed r/a/b of procedure with patient and his . -if we are able to do catheter ablation, will likely not discharge patient home with lifevest as it's a class IIB indication per ACC/AHA guidelines and in patients with tachycardia induced cardiomyopathy, LVEF may improve within 1 month. MANISH WHATLEY MD Jul 21, 2024 07:56
[2024-07-21] MEDS: LoSARTan 50 MG TABLET PO SCH (09:24)
--- NOTE | 2024-07-21 10:18 | PN ---
INFECTIOUS DISEASE PROGRESS NOTE Date of Service: Jul 21, 2024 SUBJECTIVE: This is a 53-year-old male patient who was sent over from his PCP for evaluation of palpitations and an abnormal EKG showing SVT. Patient had a stress test done yesterday which showed no ischemia. Patient was seen and examined at bedside in room 204. Patient is awake, alert and oriented x3. Patient is status post left heart catheterization day # 1. Patient is scheduled for an ablation this afternoon. Continues on metoprolol. No nausea or vomiting. No reports of fever, current temperature is 98.1. We will continue to follow patient's care. PHYSICAL EXAM EYES: Anicteric. Pupils equal and reactive. HENT: No oral thrush seen, moist Oral mucosa NECK: Supple, no JVD or thyromegaly. LUNGS: Good air entry. No rales, no rhonchi. CARDIOVASCULAR: S1, S2 regular. No murmur heard. ABDOMEN: Soft, non tender, bowel sounds present, no organomegaly CENTRAL NERVOUS SYSTEM: Awake, alert, oriented x 3. No focal deficits. SKIN: No rashes, no swelling. LYMPHATICS: No peripheral lymphadenopathy MUSCULOSKELETAL: No joint swelling, erythema or tenderness. EXTREMITIES: No cyanosis or clubbing BACK: No deformity, no pressure ulcer. GENITOURINARY: No dysuria or hematuria Vital Sign (Last 12 Hours) 07/21/24 07/21/24 07/21/24 03:25 03:54 08:32 Temp 98.1 98.4 98.1 Pulse 68 68 78 Resp 18 18 16 B/P (MAP) 137/91 137/91 137/97 Pulse Ox 95 95 96 O2 Delivery Room Air Room Air Room Air Intake & Output (last 24hrs) 07/20/24 07/20/24 07/21/24 15:00 23:00 07:00 Intake Total 200 ml 118 ml 300 ml Output Total 600 ml 1000 ml Balance 200 ml -482 ml -700 ml LABS: Laboratory: Test 07/21/24 05:40 Range/Units Whole Blood Glucose 139 #H 70-110 MG/DL ASSESSMENT: Supraventricular tachycardia, status post heart catheterization. Elevated troponin POA. Leukocytosis. Acute renal failure. Uncontrolled Diabetes mellitus. Obesity. PLAN: Continue antiarrhythmic. Continue pain management. Cardiology following patient. Glucometer checks a.c./hs and cover with insulin per sliding scale protocol. Avoid nephrotoxic medications. We will monitor electrolytes. Patient is scheduled for an ablation this afternoon. This case was reviewed and discussed with my supervising physician and the above assessment and plan was formulated and agreed upon. ATTESTATION BY PHYSICIAN I have seen and examined the patient. I reviewed the documentation, medical decision making, and treatment plan as noted by the mid-level provider above. I agree with the findings and plan of care. FELTON HUDSON MD, MIRTA L [facility] Jul 21, 2024 10:18
[2024-07-21] MEDS ORDERED: 0.9%NACL 1000ML 1,000 ML IV SCH (10:30)
[2024-07-21 10:46] LABS: BASOPHILS # (AUTO) 0.06 K/uL (0.00-0.20); BASOPHILS % (AUTO) 0.7 % (0.0-5.0); EOSINOPHILS # (AUTO) 0.26 K/uL (0.00-0.70); HEMATOCRIT 47.8 % (42-54); IMMATURE GRANULOCYTE ABSOLUTE 0.04 K/uL (0-1); LYMPHOCYTES # (AUTO) 0.9 K/uL (1.0-4.8); LYMPHOCYTES % (AUTO) 10.8 % (21.0-51.0); MEAN CORPUSCULAR HEMOGLOBIN 29.3 pg (27.0-33.0); MEAN CORPUSCULAR HGB CONC 33.1 g/dL (32.0-36.0); MEAN CORPUSCULAR VOLUME 88.7 fL (79-99); MONOCYTES # (AUTO) 0.7 K/uL (0.1-1.0); MONOCYTES % (AUTO) 8.4 % (3.0-13.0); NEUTROPHILS # (AUTO) 6.7 K/uL (1.8-7.7); NEUTROPHILS % (AUTO) 76.6 % (40.0-77.0); PLATELET COUNT (AUTO) 102 K/uL (130-400); RED BLOOD CELL COUNT(AUTO) 5.39 MIL/uL (4.50-6.20); WHITE BLOOD COUNT (AUTO) 8.7 K/uL (4.8-10.8)
[2024-07-21 10:56] LABS: CREATININE 1.1 mg/dL (0.5-1.3); POTASSIUM 4.6 mmol/L (3.5-5.1)
[2024-07-21] MEDS ORDERED: HEParin-NS 1,000 UNIT/500 ML 1,500 ML IV ONE (14:18)
[2024-07-21] MEDS ORDERED: HEParin 10,000 UNIT/10ML (1,000 UNIT/ML) VIAL ONE ×2 (14:18→15:30)
[2024-07-21] MEDS ORDERED: LIDOCAINE HCL 400MG/20ML VIAL ONE ×2 (14:18→17:15)
[2024-07-21] MEDS ORDERED: FENTanyl CITRate PF 50 MCG/1 ML 2ML VIAL ONE ×2 (15:17→16:20)
[2024-07-21] MEDS ORDERED: MIDAZOLAM HCL 1 MG/ML 2ML VIAL ONE ×2 (15:17→16:18)
[2024-07-21] MEDS ORDERED: ISOPROTERENOL HCL 0.2 MG/ML AMP/VIAL/BAG ONE (15:21)
[2024-07-21] MEDS ORDERED: METO25TA3 PO (18:23)
[2024-07-21] MEDS ORDERED: ATOR40TA69 PO (18:23)
[2024-07-21] MEDS ORDERED: FURO20TA6 PO (18:23)
[2024-07-21] MEDS ORDERED: METF-444 PO (18:30)
[2024-07-21] MEDS ORDERED: AMLO-258 PO (18:30)
[2024-07-21] MEDS ORDERED: VALS320T16 PO (18:30)
[2024-07-21] MEDS: atorVAStatin 40 MG TABLET PO SCH (20:14)
[2024-07-22 00:25] VITALS: BP_SYST 125; BP_SYST 130; BP_DIAS 66; BP_DIAS 81; PULSE 78; PULSE 83; RESP 16; RESP 18; TEMP 98; TEMP 98.5
[2024-07-22 03:25] VITALS: BP 129/69; PULSE 84; RESP 18; TEMP 98.3
[2024-07-22 07:22] VITALS: O2SAT 99
[2024-07-22 07:52] VITALS: BP 149/100; PULSE 88; RESP 16; TEMP 97.7
[2024-07-22] MEDS: metOPROLol sucCINATE 25 MG TAB.SR.24H PO SCH (09:25)
[2024-07-22] MEDS: furoSEMIDE 20 MG TABLET PO SCH (09:26)
[2024-07-22] MEDS: INSULIN GLARgine 100 UNITS/ML 10 ML VIAL SQ SCH (09:29)
--- NOTE | 2024-07-22 10:37 | NUR ---
DISCHARGE D/C INSTRUCTIONS GIVEN TO PT AND BOTH VERBALIZED UNDERSTANDING. IV AND TELE PACK REMOVED. PT WAS ESCORTED TO PRIVATE CAR. PT WAS STABLE.
--- NOTE | 2024-07-23 01:18 | DS ---
DATE OF DISCHARGE: 07/22/2024 PRESENTING COMPLAINT: Shortness of breath, chest pain, and palpitation. HOSPITAL COURSE: A 53-year-old male with obesity, diabetes mellitus, who presented to the hospital with above complaint. The patient was transferred from doctor's office with palpitation. The patient also found to have UTI and subsequently admitted. Troponin was positive. The patient underwent stress test, found to be abnormal. Eventually underwent cardiac catheterization, which shows normal coronary. With persistent tachycardia, the patient underwent EP study with ablation. Clinicall, the patient is doing well and cleared for discharge. FINAL DISCHARGE DIAGNOSES: * Supraventricular tachycardia. * Nonischemic cardiomyopathy. * Hypertension. * Diabetes mellitus. * Cardiac arrhythmia, status post ablation. PLAN: * The patient to be discharged home. * Continue metoprolol. * Continue antidiabetic. * Continue Lasix. * Follow up with product consultant. * Follow up with primary care physician. TID: [id number] RECEIPT: [id number]
--- NOTE | 2024-07-23 03:25 | EKG ---
[facility] Test Date: 2024-07-22 Test Time: 06:32:18 Pat Name: CHANDLER LAMAS Department: [facility] Room: 204 1 Gender: M Small Business Representative: CANDELARIO : 1970 Requested By: MANISH AVERY Order Number: [id number] Reading MD: Ryan Shepherd Measurements Intervals [place] Rate: 86 P: 45 MT: 128 QRS: 0 QRSD: 90 T: 186 QT: 368 QTc: 440 Interpretive Statements Normal sinus rhythm Possible Left atrial enlargement Nonspecific T wave abnormality Compared to ECG 07/21/2024 18:25:27 Prolonged QT interval no longer present T-wave abnormality still present Electronically Signed On 07-23-2024 21:32:18 DIRECTOR GLOBAL by Ryan Shepherd Please click the below link to view image of tracing.
--- NOTE | 2024-07-24 09:49 | EKG ---
[facility] Test Date: 2024-07-21 Test Time: 18:25:27 Pat Name: CHANDLER LAMAS Department: [facility] Room: 204 1 Gender: M Nutritional Yeast Supervisor: CRESCENCIO : 1970 Requested By: MANISH AVERY Order Number: [id number] Reading MD: Romana Beltran Measurements Intervals [place] Rate: 83 P: 49 MI: 132 QRS: 4 QRSD: 90 T: 205 QT: 392 QTc: 460 Interpretive Statements Normal sinus rhythm Nonspecific T wave abnormality Prolonged QT Compared to ECG 07/20/2024 21:26:10 T-wave abnormality now present Prolonged QT interval now present Supraventricular tachycardia no longer present ST (T wave) deviation no longer present Possible ischemia no longer present Electronically Signed On 07-24-2024 18:10:35 WARP SPLITTER by Romana Beltran Please click the below link to view image of tracing.
== END 2024-07-22 10:25 | disposition home or self-care (01) | DRG 286 ==
LOC: EDH 09:53 → EDHIP 14:50 → 2AH 07-19 22:58
PROVIDERS: ADMIT Internal Medicine Infectious Disease; ATTEND Internal Medicine Infectious Disease
PROC: 4A02XM4 Measurement of Cardiac Total Activity, External Approach (ICD-10-PCS; 2024-07-19)
PROC: 3E073KZ Introduction of Other Diagnostic Substance into Coronary Artery, Percutaneous Approach (ICD-10-PCS; 2024-07-19)
PROC: 4A023N7 Measurement of Cardiac Sampling and Pressure, Left Heart, Percutaneous Approach (ICD-10-PCS; principal; 2024-07-20)
PROC: B2111ZZ Fluoroscopy of Multiple Coronary Arteries using Low Osmolar Contrast (ICD-10-PCS; 2024-07-20)
PROC: B2151ZZ Fluoroscopy of Left Heart using Low Osmolar Contrast (ICD-10-PCS; 2024-07-20)
DX: I47.10 Supraventricular tachycardia, unspecified (principal); I50.21 Acute systolic (congestive) heart failure; N17.9 Acute kidney failure, unspecified; N39.0 Urinary tract infection, site not specified; I42.0 Dilated cardiomyopathy; I11.0 Hypertensive heart disease with heart failure; E11.65 Type 2 diabetes mellitus with hyperglycemia; D72.829 Elevated white blood cell count, unspecified; E87.5 Hyperkalemia; E66.9 Obesity, unspecified; E78.5 Hyperlipidemia, unspecified; F19.90 Other psychoactive substance use, unspecified, uncomplicated; I25.2 Old myocardial infarction; Z83.3 Family history of diabetes mellitus; Z79.899 Other long term (current) drug therapy; Z68.28 Body mass index [BMI] 28.0-28.9, adult; Z82.49 Family history of ischemic heart disease and other diseases of the circulatory system
CPT/HCPCS: 36415; 71045; 78452; 80048; 80061; 80305; 81001; 82010; 82550; 82948; 83036; 83735; 83880; 84484; 85025; 85610; 85730; 93005; 93017; 93306; 93458; 93623; 93653; 96365; 96375; 99156; 99157; 99285; A9500; C1760; C1894; G0378; J0153; J0360; J0583; J0612; J1644; J1650; J1815; J1940; J2250; J2785; J3010; J3490; Q9967; A4649; C1732; C1766; Q9965